=== PATIENT | female | born 1965 | race Asian ===

== ENCOUNTER 2024-04-02 20:23 | Emergency (ER) | payer BC ==
[2024-04-02] MEDS ORDERED: Bacitracin 1 PK ONE (22:58)
[2024-04-02] MEDS ORDERED: Amoxicillin/Potassium Clav 875 MG TAB ONE (23:02)
[2024-04-02] MEDS ORDERED: HYDROcodone/Acetaminophen 5/325 mg Tablet ONE (23:02)
== END 2024-04-02 23:49 | disposition home or self-care (01) ==
LOC: CSHERS 20:23
DX: S92.421A Displaced fracture of distal phalanx of right great toe, initial encounter for closed fracture (principal); W26.8XXA Contact with other sharp object(s), not elsewhere classified, initial encounter

== ENCOUNTER 2024-04-15 15:12 | Outpatient (CLI) | payer BC | END 2024-04-15 15:13 | disposition home or self-care (01) | LOC: CSHMAMMO 15:12 | PROVIDERS: ATTEND Family Medicine | DX: Z12.31 Encounter for screening mammogram for malignant neoplasm of breast (principal) | CPT/HCPCS: 77063; 77067 ==

== ENCOUNTER 2025-05-22 14:04 | Outpatient (CLI) | payer BC | END 2025-05-22 14:05 | disposition home or self-care (01) | LOC: CSHMAMMO 14:04 | PROVIDERS: ATTEND Family Medicine | DX: Z12.31 Encounter for screening mammogram for malignant neoplasm of breast (principal) | CPT/HCPCS: 77063; 77067 ==